=== PATIENT | female | born 1935 | race Caucasian/White ===

== ENCOUNTER 2017-06-12 06:28 | Day surgery (SDC) | payer MEDICARE, BC ==
[~2017-06-12 06:28] MED LIST: Sodium Chloride 0.9% 10 ML Syringe FLUSH PRN
[2017-06-12 08:00] VITALS: BP 173/79
--- NOTE | 2017-06-12 08:10 | OR ---
DATE OF PROCEDURE: 06/12/2017 POSTOPERATIVE CARE: Postoperative care will be provided mainly at the [address] [place] [address] [facility] in conjunction with [facility]. PREOPERATIVE DIAGNOSIS: Cataract, right eye. PREOPERATIVE DIAGNOSIS: Cataract, right eye. PROCEDURE: Cataract extraction, phacoemulsification with intraocular lens placement, right eye. ANESTHESIA: Topical and intracameral. ESTIMATED BLOOD LOSS: Minimal. COMPLICATIONS: None. PATHOLOGY SPECIMENS: None. SURGICAL FINDINGS: None. INDICATION FOR PROCEDURE: The patient is a 81-year-old female with history of a visually significant cataract in the right eye, which interfered with activities of daily living. This consisted of a nuclear sclerosis cataract. Following careful discussion of the risks, benefits and alternatives to cataract extraction with intraocular lens placement including blindness and , the patient elected to proceed, and informed, written consent was obtained prior to the procedure. DESCRIPTION OF THE PROCEDURE: The patient was previously identified, and a linda placed above the right eye. All sources, including the patient, indicated that the right eye was the correct eye. The patient was subsequently taken to the operating room where standard monitors were applied. The patient was then prepped and draped in the usual sterile fashion for ophthalmic surgery. Attention was first directed at the 12 o'clock position where a paracentesis port was fashioned. Shugar solution followed by Viscoat was instilled into the eye. Attention was then directed to the 8:30 position where a triplanar incision was made in a near-clear manner using a keratome. A continuous capsulorrhexis was then made using a combination of the cystotome and Utrata forceps. Hydrodissection was achieved using a balanced salt solution, and the lens rotated nicely. Phacoemulsification was then done using a modified [id number] technique without complication. Phaco time was 16.06 CDE. The remaining cortex was removed using the irrigation/aspiration handpiece. Provisc was then instilled into the eye. A Technis lens, model [id number], at 20.0 diopters was then placed in the capsular bag using an [place] injector. The remaining viscoelastic was removed using the irrigation/aspiration forceps. All wounds were then checked and found to be watertight. The lid speculum and drapes were removed. Maxitrol ointment was placed in the patient's right eye, and the eye was shielded. The patient tolerated the procedure well. The patient was instructed to follow up tomorrow. All needle and sponge counts were correct at the end of the procedure. Valentina Escalante MD /[id number]
== END 2017-06-12 08:02 | disposition home or self-care (01) ==
LOC: JP.SDS 06:28
PROVIDERS: ATTEND Ophthalmology
DX: H25.11 Age-related nuclear cataract, right eye (principal); Z88.8 Allergy status to other drugs, medicaments and biological substances
CPT/HCPCS: C1780

== ENCOUNTER 2017-06-26 06:37 | Day surgery (SDC) | payer MEDICARE, BC ==
[2017-06-26] MEDS ORDERED: Sodium Chloride 0.9% 10 ML Syringe FLUSH PRN (07:00)
[2017-06-26 07:55] VITALS: BP 152/79
--- NOTE | 2017-06-26 09:47 | OR ---
DATE OF PROCEDURE: 06/26/2017 POSTOPERATIVE CARE: Postoperative care will be provided mainly at the [address] [place] [address] [facility] in conjunction with [facility]. PREOPERATIVE DIAGNOSIS: Cataract, left eye. PREOPERATIVE DIAGNOSIS: Cataract, left eye. PROCEDURE: Cataract extraction, phacoemulsification with intraocular lens placement, left eye. ANESTHESIA: Topical and intracameral. ESTIMATED BLOOD LOSS: Minimal. COMPLICATIONS: None. PATHOLOGY SPECIMENS: None. SURGICAL FINDINGS: None. INDICATION FOR PROCEDURE: The patient is a 81-year-old female with history of a visually significant cataract in the left eye, which interfered with activities of daily living. This consisted of a nuclear sclerosis cataract. Following careful discussion of the risks, benefits and alternatives to cataract extraction with intraocular lens placement including blindness and , the patient elected to proceed, and informed, written consent was obtained prior to the procedure. DESCRIPTION OF THE PROCEDURE: The patient was previously identified, and a linda placed above the left eye. All sources, including the patient, indicated that the left eye was the correct eye. The patient was subsequently taken to the operating room where standard monitors were applied. The patient was then prepped and draped in the usual sterile fashion for ophthalmic surgery. Attention was first directed at the 12 o'clock position where a paracentesis port was fashioned. Shugar solution followed by Viscoat was instilled into the eye. Attention was then directed to the 8:30 position where a triplanar incision was made in a near-clear manner using a keratome. A continuous capsulorrhexis was then made using a combination of the cystotome and Utrata forceps. Hydrodissection was achieved using a balanced salt solution, and the lens rotated nicely. Phacoemulsification was then done using a modified [id number] technique without complication. Phaco time was 10.53 CDE. The remaining cortex was removed using the irrigation/aspiration handpiece. Provisc was then instilled into the eye. A Technis lens, model [id number], at 20.0 diopters was then placed in the capsular bag using an [place] injector. The remaining viscoelastic was removed using the irrigation/aspiration forceps. All wounds were then checked and found to be watertight. The lid speculum and drapes were removed. Maxitrol ointment was placed in the patient's left eye, and the eye was shielded. The patient tolerated the procedure well. The patient was instructed to follow up tomorrow. All needle and sponge counts were correct at the end of the procedure. Valentina Escalante MD /[id number]
== END 2017-06-26 07:58 | disposition home or self-care (01) ==
LOC: JP.SDS 06:37
PROVIDERS: ATTEND Ophthalmology
DX: H25.12 Age-related nuclear cataract, left eye (principal); K21.9 Gastro-esophageal reflux disease without esophagitis; N20.0 Calculus of kidney; Z88.2 Allergy status to sulfonamides; Z88.5 Allergy status to narcotic agent; Z91.018 Allergy to other foods; Z91.048 Other nonmedicinal substance allergy status; Z91.041 Radiographic dye allergy status
CPT/HCPCS: V2632

== ENCOUNTER 2017-06-27 16:37 | Emergency (ER) | payer MEDICARE, BC ==
[2017-06-27] MEDS ORDERED: Sodium Chloride 0.9% 10 ML Syringe FLUSH PRN (17:08)
[2017-06-27] MEDS ORDERED: Ondansetron 4 MG/2 ML SDV IVPUSH ONE ×2 (17:09→17:49)
[2017-06-27] MEDS ORDERED: Famotidine 20 MG Tab PO ONE (17:09)
[2017-06-27] MEDS ORDERED: Furosemide 40 MG/4 ML VIAL IVPUSH ONE (17:18)
--- NOTE | 2017-06-27 17:38 | EDM.PDOC ---
<Michael Dior G - Last Filed: 06/27/17 19:51> ED HPI GENERAL MEDICAL PROBLEM - General Chief Complaint: Cardiovascular Problem Stated Complaint: SOB Time Seen by Provider: 06/27/17 17:33 - Related Data Allergies Allergy/AdvReac Type Severity Reaction Status Date / Time codeine Allergy Severe Difficulty Verified 06/27/17 16:47 Breathing adhesive Allergy Rash Verified 06/27/17 16:47 lorazepam [From Ativan] Allergy Cannot Verified 06/27/17 16:47 Remember morphine Allergy Rash Verified 06/27/17 16:47 raspberry Allergy Rash Verified 06/27/17 16:47 Sulfa (Sulfonamide Allergy Itching Verified 06/27/17 16:47 Antibiotics) meperidine HCl [From Demerol] AdvReac Headache Verified 06/27/17 16:47 xray dye Allergy Severe Anaphylactic Uncoded 06/26/17 06:53 Shock celebrex Allergy Pain Uncoded 06/26/17 06:53 grapefruit Allergy Cannot Uncoded 06/26/17 06:53 Remember rhubarb Allergy Rash Uncoded 06/26/17 06:53 Home Meds: Home Meds Calcium Carb & Citrate/Vit D3 [Citracal + D ER] 1 each PO DAILY 06/10/17 [ History] Diphenoxylate HCl/Atropine [Diphenoxylate-Atrop 2.5-0.025] 1 tab PO QID PRN [History] Gabapentin [Neurontin] 300 mg PO BID 06/10/17 [History] Melatonin 5 - 10 mg PO BEDTIME PRN 06/10/17 [History] Metoprolol Succinate [Toprol Xl] 100 mg PO BID 06/10/17 [History] Ranitidine HCl [Ranitidine] 150 mg PO DAILY 06/10/17 [History] Warfarin Sodium 3 - 4 mg PO ASDIRECTED 06/10/17 [History] traMADol HCl [Tramadol HCl] 25 mg PO Q4HR PRN 06/10/17 [History] Magnesium Oxide 1 cap PO DAILY 06/23/17 [History] Molasses 1 tbs PO DAILY 06/23/17 [History] Moxifloxacin [Vigamox 0.5% Ophth Soln] 1 drop EYELF QID 06/23/17 [History] prednisoLONE Acetate [Pred Forte 1% Ophth Susp] 1 drop EYELF QID 06/23/17 [ History] Furosemide 40 mg PO ASDIRECTED #14 tablet 06/27/17 [Rx] Lisinopril 10 mg PO BEDTIME #14 tablet 06/27/17 [Rx] Course - Vital Signs Text/Narrative:: feeling better, able to breath in a supine position more comfortably now. Last Recorded V/S: Last Vital Signs Temp 36 C 06/27/17 16:44 Pulse 77 06/27/17 19:06 Resp 22 H 06/27/17 19:06 BP 143/69 H 06/27/17 19:58 Pulse Ox 95 06/27/17 19:06 - Orders/Labs/Meds Labs: Laboratory Tests 06/27/17 06/27/17 06/27/17 Range/Units 16:48 17:02 17:02 WBC 6.9 (4.5-11.0) K/uL RBC 4.99 (3.30-5.50) M/uL Hgb 13.7 (12.0-15.0) g/dL Hct 41.9 (36.0-48.0) % MCV 84 (80-98) fL MCH 28 (27-31) pg MCHC 33 (32-36) % Plt Count 106 L (150-400) K/uL Neut % (Auto) 74 H (36-66) % Lymph % (Auto) 16 L (24-44) % [place] % (Auto) 8 H (2-6) % Eos % (Auto) 2 (2-4) % Baso % (Auto) 0 (0-1) % PT 22.7 H (9.5-12.0) sec INR 2.06 H (0.80-1.20) Sodium (140-148) mmol/L Potassium (3.6-5.2) mmol/L Chloride (100-108) mmol/L Carbon Dioxide (21-32) mmol/L Anion Gap (5.0-14.0) mmol/L BUN (7-18) mg/dL Creatinine (0.6-1.0) mg/dL Est Cr Clr Drug Dosing mL/min Estimated GFR (MDRD) (>60) Glucose (74-106) mg/dL Calcium (8.5-10.1) mg/dL Total Bilirubin (0.2-1.0) mg/dL AST (15-37) U/L ALT (12-78) U/L Alkaline Phosphatase (46-116) U/L Troponin I < 0.017 (0.000-0.056) ng/mL NT-Pro-B Natriuret Pep (5-450) pg/mL Total Protein (6.4-8.2) g/dL Albumin (3.4-5.0) g/dL Globulin (2.3-3.5) g/dL Albumin/Globulin Ratio (1.2-2.2) Urine Color Urine Appearance Urine pH (4.5-8.0) Ur Specific Reading (1.008-1.030) Urine Protein (NEGATIVE) mg/dL Urine Glucose (UA) (NEGATIVE) mg/dL Urine Ketones (NEGATIVE) mg/dL Urine Occult Blood (NEGATIVE) Urine Nitrite (NEGATIVE) Urine Bilirubin (NEGATIVE) Urine Urobilinogen (NORMAL) mg/dL Ur Leukocyte Esterase (NEGATIVE) Urine RBC (0-5) Urine WBC (0-5) Ur Epithelial Cells Amorphous Sediment Urine Bacteria Urine Mucus 06/27/17 06/27/17 06/27/17 Range/Units 17:02 17:18 18:53 WBC (4.5-11.0) K/uL RBC (3.30-5.50) M/uL Hgb (12.0-15.0) g/dL Hct (36.0-48.0) % MCV (80-98) fL MCH (27-31) pg MCHC (32-36) % Plt Count (150-400) K/uL Neut % (Auto) (36-66) % Lymph % (Auto) (24-44) % [place] % (Auto) (2-6) % Eos % (Auto) (2-4) % Baso % (Auto) (0-1) % PT (9.5-12.0) sec INR (0.80-1.20) Sodium 143 (140-148) mmol/L Potassium 4.1 (3.6-5.2) mmol/L Chloride 108 (100-108) mmol/L Carbon Dioxide 26 (21-32) mmol/L Anion Gap 9.4 (5.0-14.0) mmol/L BUN 16 (7-18) mg/dL Creatinine 0.9 (0.6-1.0) mg/dL Est Cr Clr Drug Dosing 40.09 mL/min Estimated GFR (MDRD) > 60 (>60) Glucose 106 (74-106) mg/dL Calcium 8.9 (8.5-10.1) mg/dL Total Bilirubin 0.6 D (0.2-1.0) mg/dL AST 22 (15-37) U/L ALT 28 (12-78) U/L Alkaline Phosphatase 161 H (46-116) U/L Troponin I (0.000-0.056) ng/mL NT-Pro-B Natriuret Pep 1394 H (5-450) pg/mL Total Protein 6.4 (6.4-8.2) g/dL Albumin 3.4 (3.4-5.0) g/dL Globulin 3.0 (2.3-3.5) g/dL Albumin/Globulin Ratio 1.1 L (1.2-2.2) Urine Color Yellow Urine Appearance Clear Urine pH 8.0 (4.5-8.0) Ur Specific Reading 1.015 (1.008-1.030) Urine Protein Negative (NEGATIVE) mg/dL Urine Glucose (UA) Normal (NEGATIVE) mg/dL Urine Ketones Negative (NEGATIVE) mg/dL Urine Occult Blood Negative (NEGATIVE) Urine Nitrite Negative (NEGATIVE) Urine Bilirubin Negative (NEGATIVE) Urine Urobilinogen Normal (NORMAL) mg/dL Ur Leukocyte Esterase Negative (NEGATIVE) Urine RBC Not seen (0-5) Urine WBC 0-5 (0-5) Ur Epithelial Cells Rare Amorphous Sediment Few Urine Bacteria Many Urine Mucus Not seen 06/27/17 Range/Units 18:57 WBC (4.5-11.0) K/uL RBC (3.30-5.50) M/uL Hgb (12.0-15.0) g/dL Hct (36.0-48.0) % MCV (80-98) fL MCH (27-31) pg MCHC (32-36) % Plt Count (150-400) K/uL Neut % (Auto) (36-66) % Lymph % (Auto) (24-44) % [place] % (Auto) (2-6) % Eos % (Auto) (2-4) % Baso % (Auto) (0-1) % PT (9.5-12.0) sec INR (0.80-1.20) Sodium (140-148) mmol/L Potassium (3.6-5.2) mmol/L Chloride (100-108) mmol/L Carbon Dioxide (21-32) mmol/L Anion Gap (5.0-14.0) mmol/L BUN (7-18) mg/dL Creatinine (0.6-1.0) mg/dL Est Cr Clr Drug Dosing mL/min Estimated GFR (MDRD) (>60) Glucose (74-106) mg/dL Calcium (8.5-10.1) mg/dL Total Bilirubin (0.2-1.0) mg/dL AST (15-37) U/L ALT (12-78) U/L Alkaline Phosphatase (46-116) U/L Troponin I < 0.017 (0.000-0.056) ng/mL NT-Pro-B Natriuret Pep (5-450) pg/mL Total Protein (6.4-8.2) g/dL Albumin (3.4-5.0) g/dL Globulin (2.3-3.5) g/dL Albumin/Globulin Ratio (1.2-2.2) Urine Color Urine Appearance Urine pH (4.5-8.0) Ur Specific Reading (1.008-1.030) Urine Protein (NEGATIVE) mg/dL Urine Glucose (UA) (NEGATIVE) mg/dL Urine Ketones (NEGATIVE) mg/dL Urine Occult Blood (NEGATIVE) Urine Nitrite (NEGATIVE) Urine Bilirubin (NEGATIVE) Urine Urobilinogen (NORMAL) mg/dL Ur Leukocyte Esterase (NEGATIVE) Urine RBC (0-5) Urine WBC (0-5) Ur Epithelial Cells Amorphous Sediment Urine Bacteria Urine Mucus Meds: Medications Discontinued Medications Generic Name Dose Route Start Last Admin Trade Name Freq PRN Reason Stop Dose Admin Famotidine 20 mg 06/27/17 17:09 06/27/17 17:14 Pepcid PO 06/27/17 17:10 20 mg ONETIME ONE Administration Furosemide 60 mg 06/27/17 17:18 06/27/17 17:38 Lasix IVPUSH 06/27/17 17:19 60 mg ONETIME ONE Administration Lisinopril 10 mg 06/27/17 19:43 06/27/17 19:58 Prinivil PO 06/27/17 19:44 10 mg ONETIME ONE Administration Lorazepam 0.25 mg 06/27/17 17:49 06/27/17 17:57 Ativan IVPUSH 06/27/17 17:50 0.25 mg ONETIME ONE Administration Nitroglycerin 1 gm 06/27/17 18:31 06/27/17 18:48 Nitro-Bid 2% TOP 06/27/17 18:32 1 gm ONETIME ONE Administration Ondansetron HCl 4 mg 06/27/17 17:09 06/27/17 17:15 Zofran IVPUSH 06/27/17 17:10 4 mg ONETIME ONE Administration Ondansetron HCl 4 mg 06/27/17 17:49 06/27/17 17:55 Zofran IVPUSH 06/27/17 17:50 4 mg ONETIME ONE Administration Sodium Chloride 10 ml 06/27/17 17:08 06/27/17 17:16 Saline Flush FLUSH 10 ml ASDIRECTED PRN Administration Keep Vein Open Departure - Departure Time of Disposition: 20:10 Disposition: Home, Self-Care 01 Condition: Fair Clinical Impression: Pulmonary edema Qualifiers: Chronicity: acute Qualified Code(s): J81.0 - Acute pulmonary edema HTN (hypertension) Qualifiers: Hypertension type: unspecified Qualified Code(s): I10 - Essential (primary) hypertension Prescriptions: Furosemide 40 mg PO ASDIRECTED #14 tablet Lisinopril 10 mg PO BEDTIME #14 tablet Instructions: Hypertension, [id number], Pulmonary Edema, [id number] Referrals: Arian Kim Sr, MD [Primary Care Provider] - Forms: ED Department Discharge Additional Instructions: Avoid salt or salty foods. Take lisinopril every evening starting tomorrow. Take furosemide every other morning, if still a little SOB tomorrow morning you may start the furosemide then, otherwise wait and start on Friday morning. See your doctor for recheck early next week, return here over the weekend if you are worse. Continue your usual medications. Leave your Nitropaste on until morning. <Elsa Rosenthal - Last Filed: 07/01/17 07:06> ED HPI GENERAL MEDICAL PROBLEM - General Source of Information: Reports: Patient, Family History Limitations: Reports: No Limitations - History of Present Illness INITIAL COMMENTS - FREE TEXT/NARRATIVE: pt arrived with a acute onset of sob. She had cataract surgery yesterday and she is on some new eye drops. She laid down for a nap and when she woke up she was very sob and was very sweaty. She felt nauseated and she was doing alot of belchin. She di see the hook and eye attacher today and she did put drops in the eye. She is now on predisolne drops and antibiotic drops which is a floxin. Onset: Today, Sudden Duration: Minutes: Location: Reports: Chest Associated Symptoms: Reports: Cough, Shortness of Breath Neck Pain Score (Numeric/FACES): 5 Past Medical History HEENT History: Reports: Cataract, Impaired Vision Cardiovascular History: Reports: Afib, Hypertension Respiratory History: Reports: Sleep Apnea Gastrointestinal History: Reports: Cholelithiasis, Colon Polyp Genitourinary History: Reports: Renal Calculus [employer] History: Reports: Musculoskeletal History: Reports: Arthritis, Gout Other Musculoskeletal History: tore the gluteal muscle, has pain in right hip. Endocrine/Metabolic History: Reports: Hypoparathyroidism, Obesity/BMI 30+ Oncologic (Cancer) History: Reports: Lung Other Oncologic History: skin - Infectious Disease History Infectious Disease History: Reports: Chicken Pox, Measles, Mumps - Past Surgical History HEENT Surgical History: Reports: Cataract Surgery, LASIK Respiratory Surgical History: Reports: Lung Resection GI Surgical History: Reports: Appendectomy, Cholecystectomy, Other (See Below) Other GI Surgeries/Procedures: polyps removed from colon Female Surgical History: Reports: Hysterectomy Oncologic Surgical History: Reports: Other (See Below) Other Oncologic Surgeries/Procedures: lung resection Social & Family History - Family History Family Medical History: Noncontributory - Tobacco Use Smoking Status *Q: Never Smoker - Caffeine Use Caffeine Use: Reports: Soda - Recreational Drug Use Recreational Drug Use: No ED ROS GENERAL - Review of Systems Review Of Systems: See Below Constitutional: Reports: No Symptoms HEENT: Reports: No Symptoms Respiratory: Reports: Shortness of Breath, Other ( very acute onset) Cardiovascular: Reports: No Symptoms, Other ( bp was elevated. ) Endocrine: Reports: No Symptoms GI/Abdominal: Reports: No Symptoms : Reports: No Symptoms Musculoskeletal: Reports: No Symptoms Skin: Reports: No Symptoms ED EXAM, GENERAL - Physical Exam Exam: See Below Free Text/Narrative:: pt arrived with a acute episode of sob. She did not have chest pain. She did feel belchy and nauseated. Asa was not given because of that and she is anticoagulated. Exam Limited By: No Limitations General Appearance: Alert, Moderate Distress, Other ( bp was very high. ) Ears: Normal TMs Nose: Normal Inspection Throat/Mouth: Normal Inspection Head: Atraumatic Neck: Normal Inspection Respiratory/Chest: Decreased Breath Sounds, Rales Cardiovascular: Irregularly Irregular, Other (history of atrial fib. ) GI/Abdominal: Soft, Non-Tender Rectal (Female) Exam: Deferred Back Exam: Normal Inspection Extremities: Normal Inspection Neurological: Alert, Oriented, Normal Cognition Psychiatric: Anxious Course - Re-Assessments/Exams Free Text/Narrative Re-Assessment/Exam: 06/27/17 18:20 trop is normal, pt was given iv lasix and she diuresed 750 cc. She is breathing much better. She is still nauseated.
[2017-06-27] MEDS ORDERED: LORazepam 2 MG/ML SDV IVPUSH ONE (17:49)
[2017-06-27] MEDS ORDERED: Nitroglycerin 2% Oint 1 GM UD Packet TOP ONE (18:31)
[2017-06-27] MEDS ORDERED: Lisinopril 10 MG Tab PO ONE (19:43)
[2017-06-27 19:59] VITALS: BP 143/69
--- NOTE | 2017-06-30 08:53 | CR ---
Portable chest Findings: There is mild cardiac enlargement. There is mild vascular engorgement. There is mild promin ence of the interstitial markings. No focal infiltrates or effusions. There are surgical clips medial ly on the left. Impression: 1. Mild CHF.
== END 2017-06-27 20:21 | disposition home or self-care (01) ==
LOC: JP.ED 16:37
DX: J81.0 Acute pulmonary edema (principal); I10 Essential (primary) hypertension; I48.91 Unspecified atrial fibrillation; M19.90 Unspecified osteoarthritis, unspecified site; E20.9 Hypoparathyroidism, unspecified; E66.9 Obesity, unspecified; Z79.899 Other long term (current) drug therapy; Z88.2 Allergy status to sulfonamides; Z88.1 Allergy status to other antibiotic agents; Z88.8 Allergy status to other drugs, medicaments and biological substances; Z91.041 Radiographic dye allergy status; Z91.018 Allergy to other foods; Z88.5 Allergy status to narcotic agent; Z91.09 Other allergy status, other than to drugs and biological substances
CPT/HCPCS: 36415; 71045; 80053; 81001; 83880; 84484; 85025; 85610; 93005; 96374; 96375; 96376; 99284; 99285; A9270; J1940; J2060; J2405; J7050

== ENCOUNTER 2017-10-28 23:31 | Emergency (ER) | payer MEDICARE, BC ==
--- NOTE | 2017-10-29 | EDM.PDOC ---
ED HPI GENERAL MEDICAL PROBLEM - General Stated Complaint: SORE LEGS/CAN'T WALK Time Seen by Provider: 10/28/17 23:43 Source of Information: Reports: Patient, RN Notes Reviewed History Limitations: Reports: No Limitations - History of Present Illness INITIAL COMMENTS - FREE TEXT/NARRATIVE: 82-year-old female presents to the emergency department today complaint of bilateral leg pain, she states the leg pain has been ongoing for the last couple days but now it's gotten to the point where she can no longer take the pain anymore. She is not tried any medications other than tramadol which is her normal medication. She has complained of heartburn been ongoing for the last 3 weeks no shortness of breath no diaphoresis bilateral lower legs Pain Score (Numeric/FACES): 10 - Related Data Allergies Allergy/AdvReac Type Severity Reaction Status Date / Time codeine Allergy Severe Difficulty Verified 10/28/17 23:47 Breathing adhesive Allergy Rash Verified 10/28/17 23:47 lorazepam [From Ativan] Allergy Cannot Verified 10/28/17 23:47 Remember morphine Allergy Rash Verified 10/28/17 23:47 raspberry Allergy Rash Verified 10/28/17 23:47 Sulfa (Sulfonamide Allergy Itching Verified 10/28/17 23:47 Antibiotics) meperidine HCl [From Demerol] AdvReac Headache Verified 10/28/17 23:47 xray dye Allergy Severe Anaphylactic Uncoded 10/28/17 23:47 Shock celebrex Allergy Pain Uncoded 10/28/17 23:47 grapefruit Allergy Cannot Uncoded 10/28/17 23:47 Remember rhubarb Allergy Rash Uncoded 10/28/17 23:47 Home Meds: Home Meds Calcium Carb & Citrate/Vit D3 [Citracal + D ER] 1 each PO DAILY 06/10/17 [ History] Diphenoxylate HCl/Atropine [Diphenoxylate-Atrop 2.5-0.025] 1 tab PO QID PRN [History] Melatonin 5 - 10 mg PO BEDTIME PRN 06/10/17 [History] Metoprolol Succinate [Toprol Xl] 100 mg PO BID 06/10/17 [History] Ranitidine HCl [Ranitidine] 150 mg PO DAILY 06/10/17 [History] Warfarin Sodium 3 - 4 mg PO ASDIRECTED 06/10/17 [History] traMADol HCl [Tramadol HCl] 25 mg PO Q4HR PRN 06/10/17 [History] Magnesium Oxide 200 cap PO ASDIRECTED 06/23/17 [History] Molasses 1 tbs PO DAILY 06/23/17 [History] prednisoLONE acetate [Pred Forte 1% Ophth Susp] 1 drop EYELF QID 06/23/17 [ History] Lisinopril 10 mg PO BEDTIME #14 tablet 06/27/17 [Rx] Diazepam [Valium] 5 mg PO BID 10/20/17 [History] Past Medical History HEENT History: Reports: Cataract, Impaired Vision Cardiovascular History: Reports: Afib, Hypertension Respiratory History: Reports: Sleep Apnea Gastrointestinal History: Reports: Cholelithiasis, Colon Polyp Genitourinary History: Reports: Renal Calculus [employer] History: Reports: Musculoskeletal History: Reports: Arthritis, Gout Other Musculoskeletal History: tore the gluteal muscle, has pain in right hip. Endocrine/Metabolic History: Reports: Hypoparathyroidism, Obesity/BMI 30+ Oncologic (Cancer) History: Reports: Lung Other Oncologic History: skin - Infectious Disease History Infectious Disease History: Reports: Chicken Pox, Measles, Mumps - Past Surgical History Head Surgeries/Procedures: Reports: None HEENT Surgical History: Reports: Cataract Surgery, LASIK Respiratory Surgical History: Reports: Lung Resection GI Surgical History: Reports: Appendectomy, Cholecystectomy, Other (See Below) Other GI Surgeries/Procedures: polyps removed from colon Female Surgical History: Reports: Hysterectomy Oncologic Surgical History: Reports: Other (See Below) Other Oncologic Surgeries/Procedures: lung resection Dermatological Surgical History: Reports: None Social & Family History - Family History Family Medical History: Noncontributory - Tobacco Use Smoking Status *Q: Never Smoker - Caffeine Use Caffeine Use: Reports: Soda ED ROS GENERAL - Review of Systems Review Of Systems: See Below Constitutional: Denies: Fever, Chills HEENT: Reports: No Symptoms Respiratory: Reports: No Symptoms Cardiovascular: Reports: Chest Pain (describes as heartburn) GI/Abdominal: Reports: No Symptoms : Reports: No Symptoms Musculoskeletal: Reports: Leg Pain Skin: Reports: No Symptoms Neurological: Reports: No Symptoms (bilateral) Psychiatric: Reports: Agitation, Anxiety ED EXAM, GENERAL - Physical Exam Exam: See Below Free Text/Narrative:: General: 82-year-old female, in moderate discomfort secondary to pain, alert and oriented x3 HEENT: head is atraumatic normocephalic, eyes pupils equal round reactive to light, sclera clear no conjunctivitis appreciated. Ears tympanic membranes blocked by cerumen bilaterally. Nose no septal deviation, nares are clear, no blood present. Mouth mucosa is moist and pink no erythema or exudate noted in soft palate, tongue is midline uvula is midline, dentition is intact. Neck: Supple no thyromegaly no tracheal deviation. Nodes: Cervical nodes subclavicular nodes nontender no palpable lymphadenopathy noted. Lungs: clear to auscultation bilaterally with symmetrical respirations, no adventitious noise appreciated. CV: Regular rate and rhythm S1 and S2 appreciated no murmurs rubs or gallops noted. Abdomen: Soft, nontender, no palpable masses or organomegaly appreciated, no distention no guarding bowel sounds are present, . Neuro: Cranial nerves II through XII grossly intact Skin: Warm and dry, intact Extremities: No lower extremity edema appreciated, no rashes no specific point tenderness appreciated, bilaterally pedal pulse is +2. Bilaterally Course - Vital Signs Last Recorded V/S: Last Vital Signs Temp 98.2 F 10/29/17 00:14 Pulse 81 10/29/17 02:03 Resp 22 H 10/29/17 02:03 BP 144/73 H 10/29/17 02:03 Pulse Ox 97 10/29/17 02:03 - Orders/Labs/Meds Orders: Active Orders 24 hr Category Date Time Status Cardiac Monitoring [RC] .As Directed Care 10/28/17 23:55 Active EKG Documentation Completion [RC] ASDIRECTED Care 10/28/17 23:56 Active VL Duplex Lwr Ext Art Comp Bi [US] Stat Exams 10/29/17 00:55 Taken EKG 12 Lead [EK] Stat Ther 10/28/17 23:56 Ordered Labs: Laboratory Tests 10/28/17 10/28/17 10/28/17 Range/Units 00:05 00:05 00:05 WBC 9.0 (4.5-11.0) K/uL RBC 4.61 (3.30-5.50) M/uL Hgb 13.4 (12.0-15.0) g/dL Hct 41.2 (36.0-48.0) % MCV 89 (80-98) fL MCH 29 (27-31) pg MCHC 33 (32-36) % Plt Count 109 L (150-400) K/uL Neut % (Auto) 69 H (36-66) % Lymph % (Auto) 18 L (24-44) % Mills % (Auto) 10 H (2-6) % Eos % (Auto) 3 (2-4) % Baso % (Auto) 0 (0-1) % PT 17.6 H (9.5-12.0) sec INR 1.65 H (0.80-1.20) D-Dimer, Quantitative 705 H (0.0-400.0) ng/mL Sodium (140-148) mmol/L Potassium (3.6-5.2) mmol/L Chloride (100-108) mmol/L Carbon Dioxide (21-32) mmol/L Anion Gap (5.0-14.0) mmol/L BUN (7-18) mg/dL Creatinine (0.6-1.0) mg/dL Est Cr Clr Drug Dosing mL/min Estimated GFR (MDRD) (>60) Glucose (74-106) mg/dL Calcium (8.5-10.1) mg/dL Total Bilirubin (0.2-1.0) mg/dL AST (15-37) U/L ALT (12-78) U/L Alkaline Phosphatase (46-116) U/L Troponin I (0.000-0.056) ng/mL Total Protein (6.4-8.2) g/dL Albumin (3.4-5.0) g/dL Globulin (2.3-3.5) g/dL Albumin/Globulin Ratio (1.2-2.2) 10/28/17 Range/Units 00:05 WBC (4.5-11.0) K/uL RBC (3.30-5.50) M/uL Hgb (12.0-15.0) g/dL Hct (36.0-48.0) % MCV (80-98) fL MCH (27-31) pg MCHC (32-36) % Plt Count (150-400) K/uL Neut % (Auto) (36-66) % Lymph % (Auto) (24-44) % Mills % (Auto) (2-6) % Eos % (Auto) (2-4) % Baso % (Auto) (0-1) % PT (9.5-12.0) sec INR (0.80-1.20) D-Dimer, Quantitative (0.0-400.0) ng/mL Sodium 144 (140-148) mmol/L Potassium 4.3 (3.6-5.2) mmol/L Chloride 110 H (100-108) mmol/L Carbon Dioxide 27 (21-32) mmol/L Anion Gap 11.3 (5.0-14.0) mmol/L BUN 27 H (7-18) mg/dL Creatinine 1.0 (0.6-1.0) mg/dL Est Cr Clr Drug Dosing 35.49 mL/min Estimated GFR (MDRD) 53 L (>60) Glucose 118 H (74-106) mg/dL Calcium 8.6 (8.5-10.1) mg/dL Total Bilirubin 0.3 (0.2-1.0) mg/dL AST 17 (15-37) U/L ALT 31 (12-78) U/L Alkaline Phosphatase 159 H (46-116) U/L Troponin I < 0.017 (0.000-0.056) ng/mL Total Protein 5.9 L (6.4-8.2) g/dL Albumin 3.0 L (3.4-5.0) g/dL Globulin 2.9 (2.3-3.5) g/dL Albumin/Globulin Ratio 1.0 L (1.2-2.2) Meds: Medications Discontinued Medications Generic Name Dose Route Start Last Admin Trade Name Rickq PRN Reason Stop Dose Admin Fentanyl 50 mcg 10/28/17 23:56 10/29/17 00:00 Sublimaze IM 10/28/17 23:57 50 mcg ONETIME ONE Administration Fentanyl 50 mcg 10/29/17 00:55 10/29/17 01:08 Sublimaze IM 10/29/17 00:56 50 mcg ONETIME ONE Administration Ropinirole HCl 0.25 mg 10/29/17 21:00 Requip PO BEDTIME DK Departure - Departure Time of Disposition: 02:30 Disposition: Home, Self-Care 01 Condition: Fair Clinical Impression: Peripheral vascular disease - Discharge Information Referrals: Arian Kim Sr, MD [Primary Care Provider] - Additional Instructions: Use hydrocodone as needed for pain control, Please followup with your primary care provider in 3-5 days if not better, please call return to the emergency department with worsening of symptoms. - My Orders Last 24 Hours: My Active Orders 10/28/17 23:55 Cardiac Monitoring [RC] .As Directed 10/28/17 23:56 EKG Documentation Completion [RC] ASDIRECTED EKG 12 Lead [EK] Stat 10/29/17 00:55 VL Duplex Lwr Ext Art Comp Bi [US] Stat - Assessment/Plan Last 24 Hours: My Active Orders 10/28/17 23:55 Cardiac Monitoring [RC] .As Directed 10/28/17 23:56 EKG Documentation Completion [RC] ASDIRECTED EKG 12 Lead [EK] Stat 10/29/17 00:55 VL Duplex Lwr Ext Art Comp Bi [US] Stat Plan: Assessment Acuity = acute Site and laterality = peripheral vascular disease left greater than right Etiology = underlying plaque probably related to cholesterol as well as remote smoking history Manifestations = bilateral leg pain Location of injury = Home Lab values = CBC unremarkable CMP unremarkable INR subtherapeutic at 1.65 d- dimer elevated at 705 uncertain significance troponin was negative EKG demonstrates a sinus rhythm with ST elevation in 3 however this is similar to EKG on 09-07 ultrasound demonstrates a biphasic waveform on the right however monophasic waveform on the left with plaques and stenosis throughout Plan Did review lab work and ultrasound results with her she is provided hydrocodone 5/325 one tab by mouth 3 times a day when necessary total #6 of her follow-up with her primary care in the next 3-5 days for reevaluation This note was dictated using [employer] voice recognition software please call with any questions on syntax or grammar.
[2017-10-29] MEDS: fentaNYL 100 MCG/2 ML SDV IM ONE ×2 (01:08)
[2017-10-29 02:04] VITALS: BP 144/73
--- NOTE | 2017-10-29 08:26 | US ---
VL Duplex Lwr Ext Art Comp Bi HISTORY: pain elevated d-dimer FINDINGS: The right leg demonstrates biphasic arterial flow throughout with monophasic flow in the do rsalis pedis artery at the foot. No occluded segments are seen. No significant increased peak systoli c velocities are identified. No focal stenosis is seen. Left leg demonstrates biphasic flow from the common femoral artery through the mid SFA. Monophasic fl ow is seen in the distal SFA thrombus remainder of the left leg. No occluded segments are identified. No focal increased velocities are seen. There is scattered atherosclerotic plaque bilaterally. IMPRESSION: Scattered atherosclerotic plaque bilaterally. No occluded segments are seen. No focal hem odynamically significant stenosis is identified. Biphasic and monophasic flow bilaterally could sugge st moderate inflow occlusive changes. Monophasic flow is seen in the distal SFA through the dorsalis pedis artery left leg.
[2017-10-29] MEDS ORDERED: rOPINIRole 0.5 MG Tab PO SCH (21:00)
== END 2017-10-29 02:47 | disposition home or self-care (01) ==
LOC: JP.ED 23:31
DX: I73.9 Peripheral vascular disease, unspecified (principal); Z91.018 Allergy to other foods; Z88.8 Allergy status to other drugs, medicaments and biological substances; Z79.899 Other long term (current) drug therapy; I10 Essential (primary) hypertension; E66.9 Obesity, unspecified; Z91.041 Radiographic dye allergy status; Z88.5 Allergy status to narcotic agent; Z88.2 Allergy status to sulfonamides; Z91.09 Other allergy status, other than to drugs and biological substances
CPT/HCPCS: 36415; 80053; 84484; 85025; 85379; 85610; 93005; 93925; 96372; 99284; J3010

== ENCOUNTER 2018-07-10 14:12 | Emergency (ER) | payer MEDICARE, BC ==
[2018-07-10 14:28] VITALS: BP 136/70
[2018-07-10] MEDS ORDERED: Dexamethasone 4 MG/ML SDV IM ONE (15:29)
[2018-07-10] MEDS ORDERED: Ketorolac 60 MG/2 ML SDV IM ONE (15:29)
--- NOTE | 2018-07-10 15:37 | EDM.PDOC ---
ED HPI GENERAL MEDICAL PROBLEM - General Chief Complaint: Lower Extremity Injury/Pain Stated Complaint: RT HIP PAIN Time Seen by Provider: 07/10/18 15:15 Source of Information: Reports: Patient, Family History Limitations: Reports: No Limitations, Other (pain limiting history at time of evaluation ) - History of Present Illness INITIAL COMMENTS - FREE TEXT/NARRATIVE: alert pleasant 82-year-old female presents with acute exacerbation of right hip , sciatic nerve pain. Patient had similar symptoms in December which she got a steroid shots and symptoms had improved over the last 6 months without recurrence. Patient was seen in the clinic yesterday received a shot of Toradol with resolution of her symptoms. Patient states her symptoms were worse this am and has progressively worsened through out the day. Patient is taking hydrocodone 10/325 for the continuation of her pain. Patient states she has not been able to sleep or rest for 2-3 days due to pain. Patient state Tramadol does a better job controlling her pain than Lorcet Patient state the narcotic pain medications is not controling her pain and she has increased abdominal cramping and pain. She has not had a bowel movement in the last 2 days with normally loose regular stools since taking pain medications. She denies any new fall or injury. Pain radiates from right lower back to buttocks and right lateral thigh to outer foot. Patient denies any loss of bowel or bladder function or concerns. Right Hip Pain Score (Numeric/FACES): 10 - Related Data Allergies Allergy/AdvReac Type Severity Reaction Status Date / Time codeine Allergy Severe Difficulty Verified 07/10/18 14:40 Breathing adhesive Allergy Rash Verified 07/10/18 14:40 lorazepam [From Ativan] Allergy Cannot Verified 07/10/18 14:40 Remember morphine Allergy Rash Verified 07/10/18 14:40 raspberry Allergy Rash Verified 07/10/18 14:40 Sulfa (Sulfonamide Allergy Itching Verified 07/10/18 14:40 Antibiotics) meperidine HCl [From Demerol] AdvReac Headache Verified 07/10/18 14:40 xray dye Allergy Severe Anaphylactic Uncoded 07/10/18 14:40 Shock celebrex Allergy Pain Uncoded 07/10/18 14:40 grapefruit Allergy Cannot Uncoded 07/10/18 14:40 Remember rhubarb Allergy Rash Uncoded 07/10/18 14:40 Home Meds: Home Meds Calcium Carb & Citrate/Vit D3 [Citracal + D ER] 1 each PO DAILY 06/10/17 [ History] Diphenoxylate HCl/Atropine [Diphenoxylate-Atrop 2.5-0.025] 1 tab PO QID PRN [History] Melatonin 5 - 10 mg PO BEDTIME PRN 06/10/17 [History] Metoprolol Succinate [Toprol Xl] 100 mg PO BID 06/10/17 [History] Ranitidine HCl [Ranitidine] 150 mg PO DAILY 06/10/17 [History] Warfarin Sodium 3 mg PO ASDIRECTED 06/10/17 [History] traMADol HCl [Tramadol HCl] 25 mg PO Q4HR PRN 06/10/17 [History] Magnesium Oxide 200 cap PO ASDIRECTED 06/23/17 [History] Molasses 1 tbs PO DAILY 06/23/17 [History] Methimazole [Tapazole] 10 mg PO DAILY 07/10/18 [History] Omeprazole 20 mg PO ONETIME 07/10/18 [History] Past Medical History HEENT History: Reports: Cataract, Impaired Vision Cardiovascular History: Reports: Afib, Hypertension Respiratory History: Reports: Sleep Apnea Other Respiratory History: Cpap Gastrointestinal History: Reports: Cholelithiasis, Colon Polyp Genitourinary History: Reports: Renal Calculus [employer]ER[employer]OM[employer]ER TESTER History: Reports: Musculoskeletal History: Reports: Arthritis, Gout Other Musculoskeletal History: tore the gluteal muscle, has pain in right hip. Neurological History: Reports: Other (See Below) Other Neuro History: restless leg syndrome Endocrine/Metabolic History: Reports: Hyperthyroidism, Obesity/BMI 30+ Hematologic History: Reports: Anticoagulation Therapy Oncologic (Cancer) History: Reports: Lung Other Oncologic History: skin - Infectious Disease History Infectious Disease History: Reports: Chicken Pox, Measles, Mumps - Past Surgical History Head Surgeries/Procedures: Reports: None HEENT Surgical History: Reports: Cataract Surgery, LASIK Respiratory Surgical History: Reports: Lung Resection GI Surgical History: Reports: Appendectomy, Cholecystectomy, Other (See Below) Other GI Surgeries/Procedures: polyps removed from colon Female Surgical History: Reports: Hysterectomy Oncologic Surgical History: Reports: Other (See Below) Other Oncologic Surgeries/Procedures: lung resection Dermatological Surgical History: Reports: None Social & Family History - Family History Family Medical History: Noncontributory - Tobacco Use Smoking Status *Q: Former Smoker Used Tobacco, but Quit: Yes Month/Year Tobacco Last Used: 2017 - Caffeine Use Caffeine Use: Reports: Soda - Recreational Drug Use Recreational Drug Use: No Review of Systems - Review of Systems Review Of Systems: ROS reveals no pertinent complaints other than HPI. (limited due to level of pain) ED EXAM, GENERAL - Physical Exam Exam: See Below Exam Limited By: Other (pain concerns. at bedside and supportive) General Appearance: Alert, WD/WN, Moderate Distress (due to right hip/buttocks pain) Ears: Normal External Exam, Hearing Grossly Normal Ear Exam: Bilateral Ear: Auricle Normal, Canal Normal, TM normal Nose: Normal Inspection, Normal Mucosa, No Blood Throat/Mouth: Normal Inspection, Normal Lips, Normal Teeth, Normal Voice, No Airway Compromise Head: Normocephalic Neck: Normal Inspection, Supple, Non-Tender, Full Range of Motion Respiratory/Chest: No Respiratory Distress, Lungs Clear, Normal Breath Sounds, No Accessory Muscle Use, Chest Non-Tender Cardiovascular: Normal Peripheral Pulses, Regular Rate, Rhythm GI/Abdominal: Normal Bowel Sounds, Soft, Non-Tender, No Distention Back Exam: Normal Inspection, Full Range of Motion, Vertebral Tenderness ( between scapula (likely MS and positional due to adjusted position of comfort due to right buttocks pain) ) Extremities: Normal Inspection, No Pedal Edema, Normal Capillary Refill, Other ( significant pain to palpation of Right SI joint which radiates down lateral thigh with irriation, classic finding for sciatica) Neurological: Alert, Oriented, CN II-XII Intact, Normal Cognition, Normal Gait, Normal Reflexes, No Motor/Sensory Deficits Psychiatric: Normal Affect, Normal Mood Skin Exam: Warm, Dry, Intact, Normal Color, No Rash Course - Vital Signs Last Recorded V/S: Last Vital Signs Temp 35.4 C 07/10/18 14:36 Pulse 84 07/10/18 14:36 Resp 17 07/10/18 14:36 BP 136/70 07/10/18 14:36 Pulse Ox 97 07/10/18 14:36 - Orders/Labs/Meds Meds: Medications Discontinued Medications Generic Name Dose Route Start Last Admin Trade Name Freq PRN Reason Stop Dose Admin Dexamethasone 10 mg 07/10/18 15:29 07/10/18 15:38 Dexamethasone IM 07/10/18 15:30 10 mg ONETIME ONE Administration Ketorolac Tromethamine 60 mg 07/10/18 15:29 07/10/18 15:39 Toradol IM 07/10/18 15:30 60 mg ONETIME ONE Administration Tramadol HCl 100 mg 07/10/18 15:47 07/10/18 15:58 Ultram PO 07/10/18 15:48 100 mg ONETIME ONE Administration Tramadol HCl Confirm 07/10/18 16:00 Ultram Administered 07/10/18 16:01 Dose 50 mg .ROUTE .STK-MED ONE - Re-Assessments/Exams Free Text/Narrative Re-Assessment/Exam: Examination completed: Patient instructions reviewed from clinic visit which include prescription for Lorcet and appointment Scheduled for July 14 for XR Fluoro Steroid shot. Scheduled medications are reviewed, Discussed treatment for constipation including Mag Oxide and Miralax ( states they have a bottle of Miralax at home). 07/10/18 16:35: Repeat examination completed. Pain improving from 10 out of 10 to 5-6 out of 10. Patient is much more comfortable and able to ambulate with less difficulty. Departure - Departure Time of Disposition: 16:34 Disposition: Home, Self-Care 01 Condition: Good Clinical Impression: Right sided sciatica - Discharge Information Instructions: Sciatica Rehab-[facility], Sciatica Referrals: Mane Javier MD [Primary Care Provider] - Forms: ED Department Discharge Additional Instructions: BACK SCIATICA 1. LIMIT LIFTING (<10 LBS/BENDING/TWISTING) X 48 HOURS. 2. TAKE ABOVE MEDICATIONS DIRECTED UNLESS RE-CHECK IN CLINIC 3. PREDNISONE 20 mg every am and 20mg every pm with food FOR INFLAMMATION. 4. Tramadol 50-100mg every 4-6 hours for moderate pain. May take with TYLENOL 500-1000mg every 6-8 hours for mild pain. Stop Lorcet at this time. 5. Follow Constipation information. Increase Magnesium to 2-3 tablets daily and take Miralax 1-2 times per day if taking pain medication to prevent and treat constipation. 6. ICE 15-20MIN ALTERNATE WITH HEAT 15-20 MIN 3-4 TIMES PER DAY. 7. CALL CLINIC IN 3-4 DAYS TO MAKE A FOLLOW-UP APPOINTMENT SOONER if not improved OR WORSEN. 8. RETURN TO ER FOR WORSENING OR NEW SYMPTOMS, LOSS OF BLADDER/BOWL CONTROL, GROIN NUMBNESS, FEVER, TROUBLE BREATHING, and NUMBNESS/TINGLINIG/WEAKNESS IN LOWER EXTREMiTIES, ABDOMINAL PAIN, CONCERNS OR CHANGES. Sciatica What is sciatica? Sciatica is a form of low back pain that runs down your leg, causing pain, numbness, or tingling in the leg. How does it occur? The sciatic nerve is formed by a group of nerves that run from the lower spine down the leg to the foot. Anything that causes irritation along the course of the nerve can cause sciatica. The most common causes are: overuse of your back (lifting something that is too heavy or doing work that uses your back much more than you are used to) injury to your back (slipping and falling, or having something hit your back). Overuse or injury can cause muscle tension or spasm, back sprains, ligament or muscle tears, or joint problems, all of which can irritate the sciatic nerve. Low back pain and sciatica can also be caused by infections, tumors, a ruptured disk in your back, osteoporosis, spondylosis (hardening and stiffening of the spine), or spinal stenosis (narrowing of the spinal canal from bone or soft tissue). What are the symptoms? The main symptom is pain that shoots down from the lower back and buttocks to your leg. You may also have numbness or tingling in your leg. Sometimes your leg muscles are weak. How is it diagnosed? Your healthcare provider will ask about your symptoms and examine your back. If your provider thinks you might have an infection or a bone disease, you may have some lab tests or X-rays, a CT scan, or an MRI. Most people do not need X-rays or other types of scans in the early part of their treatment. If the pain does not get better in a few weeks, or if the symptoms get worse, then special tests may be needed How is it treated? Most people with low back pain and sciatica get better no matter what they do. Often nonprescription medicines for pain and inflammation, such as aspirin, ibuprofen, or naproxen, can ease the pain. Talk to your healthcare provider about whether you should take these medicines. Your provider may prescribe stronger pain medicine or other types of medicines. Your provider may prescribe oral steroids or you may be given a steroid shot into your spine to control pain and inflammation. Ice packs or a heating pad may help reduce pain. (Do not sleep on a heating pad because it could cause ybarra.) Your provider may also suggest physical therapy. A program of gentle exercise may speed your recovery. If you continue to have symptoms, you may need to have surgery. However, most people who have herniated disks do not need an operation. How long will the effects last? People who have sciatica with back pain recover more slowly than people with other kinds of back pain. However, you will probably begin feeling better within a few days of a back strain or injury if you don't strain your back again and if you take some medicine for pain and inflammation. Often the pain is gone in a week or two. Contact your provider right away if: You have numbness or tingling in the inner part of your thighs (in a saddle distribution). You have any new or increasing weakness in your legs. Call your healthcare provider for a follow-up appointment if: The pain is not getting better. You have new symptoms. How can I take care of myself? If you have low back pain and sciatica, make sure you do not overuse your back. Strict bed rest is no longer recommended. It is better to do your usual activities but: Avoid lifting more than 5 pounds. Avoid frequent bending or other activities that make the pain worse. How can I help prevent sciatica? If you have had back pain and sciatica, you are likely to get it again. To help prevent it in the shelter: Lose weight if you are overweight. Do regular aerobic exercise to keep your back and abdominal muscles in shape ( this can be as simple as walking), Learn to lift properly. Bend your knees and hips and keep your back straight when you lift a heavy object.
[2018-07-10] MEDS ORDERED: traMADol 50 MG Tab PO ONE (15:47)
[2018-07-10] MEDS ORDERED: traMADol 50 MG Tab ONE (16:00)
== END 2018-07-10 16:46 | disposition home or self-care (01) ==
LOC: JP.ED 14:12
DX: M54.31 Sciatica, right side (principal); I10 Essential (primary) hypertension; I48.91 Unspecified atrial fibrillation; E03.9 Hypothyroidism, unspecified; Z79.01 Long term (current) use of anticoagulants; Z87.891 Personal history of nicotine dependence; Z79.899 Other long term (current) drug therapy; Z88.1 Allergy status to other antibiotic agents; Z88.5 Allergy status to narcotic agent; Z88.2 Allergy status to sulfonamides; Z91.041 Radiographic dye allergy status; Z91.09 Other allergy status, other than to drugs and biological substances
CPT/HCPCS: 96372; 99283; A9270; J1100; J1885

== ENCOUNTER 2021-02-15 16:00 | Emergency (ER) | payer MEDICARE, BC ==
[2021-02-15 16:23] VITALS: BP 166/89
[2021-02-15 16:57] LABS: CORONAVIRUS COVID-19 NAA NEGATIVE (NEGATIVE)
[2021-02-15 16:58] VITALS: PULSE 73
[2021-02-15] MEDS ORDERED: Acetaminophen 500 MG Tab PO ONE (17:03)
--- NOTE | 2021-02-15 17:16 | EDM.PDOC ---
ED HPI GENERAL MEDICAL PROBLEM - General Chief Complaint: Respiratory Problem Stated Complaint: NAUSEA, WEAK, POSSIBLE COVID Time Seen by Provider: 02/15/21 16:55 Source of Information: Reports: Patient, Old Records, RN History Limitations: Reports: No Limitations - History of Present Illness INITIAL COMMENTS - FREE TEXT/NARRATIVE: 85 yo female presents with a complaint of sinus pressure and rhinorrhea since yesterday. No fever or cough. No known exposures. Is taking Lili without relief. 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: Other (see below) (Lili) Right Hip Pain Score (Numeric/FACES): 7 - Related Data Allergies Allergy/AdvReac Type Severity Reaction Status Date / Time codeine Allergy Severe Difficulty Verified 07/10/18 14:40 Breathing adhesive Allergy Rash Verified 07/10/18 14:40 lorazepam [From Ativan] Allergy Cannot Verified 07/10/18 14:40 Remember morphine Allergy Rash Verified 07/10/18 14:40 raspberry Allergy Rash Verified 07/10/18 14:40 Sulfa (Sulfonamide Allergy Itching Verified 07/10/18 14:40 Antibiotics) meperidine HCl [From Demerol] AdvReac Headache Verified 07/10/18 14:40 xray dye Allergy Intermediate Rash Uncoded 03/29/19 13:29 celebrex Allergy Pain Uncoded 07/10/18 14:40 grapefruit Allergy Cannot Uncoded 07/10/18 14:40 Remember rhubarb Allergy Rash Uncoded 07/10/18 14:40 Home Meds: Home Meds Calcium Carb, Citrate/Vit D3 [Citracal + D ER] 1 each PO DAILY 06/10/17 [History] Diphenoxylate HCl/Atropine [Diphenoxylate-Atrop 2.5-0.025] 1 tab PO QID PRN 06/10/17 [History] Melatonin 5 - 10 mg PO BEDTIME PRN 06/10/17 [History] Metoprolol Succinate [Toprol Xl] 100 mg PO BID 06/10/17 [History] Warfarin Sodium 3 mg PO ASDIRECTED 06/10/17 [History] traMADol HCl [Tramadol HCl] 25 mg PO Q4HR PRN 06/10/17 [History] Magnesium Oxide 200 cap PO ASDIRECTED 06/23/17 [History] Methimazole [Tapazole] 10 mg PO DAILY 07/10/18 [History] Omeprazole 20 mg PO ONETIME 07/10/18 [History] Past Medical History HEENT History: Reports: Cataract, Impaired Vision Cardiovascular History: Reports: Afib, Hypertension Respiratory History: Reports: Sleep Apnea Other Respiratory History: Cpap Gastrointestinal History: Reports: Cholelithiasis, Colon Polyp Genitourinary History: Reports: Renal Calculus 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 Neurological History: Reports: Other (See Below) Other Neuro History: restless leg syndrome Endocrine/Metabolic History: Reports: Hyperthyroidism, Obesity/BMI 30+ Hematologic History: Reports: Anticoagulation Therapy Oncologic (Cancer) History: Reports: Lung Other Oncologic History: skin - Infectious Disease History Infectious Disease History: Reports: Chicken Pox, Measles, Mumps - Past Surgical History Head Surgeries/Procedures: Reports: None HEENT Surgical History: Reports: Cataract Surgery, LASIK Cardiovascular Surgical History: Reports: None Respiratory Surgical History: Reports: Lung Resection GI Surgical History: Reports: Appendectomy, Cholecystectomy, Other (See Below) Other GI Surgeries/Procedures: polyps removed from colon Female Surgical History: Reports: Hysterectomy Endocrine Surgical History: Reports: None Musculoskeletal Surgical History: Reports: None Oncologic Surgical History: Reports: Other (See Below) Other Oncologic Surgeries/Procedures: lung resection Dermatological Surgical History: Reports: None Social & Family History - Family History Family Medical History: No Pertinent Family History - Tobacco Use Tobacco Use Status *Q: Former Tobacco User Used Tobacco, but Quit: Yes Month/Year Tobacco Last Used: 02/2015 - Caffeine Use Caffeine Use: Reports: Soda - Recreational Drug Use Recreational Drug Use: No ED ROS GENERAL - Review of Systems Review Of Systems: See Below Constitutional: Reports: No Symptoms HEENT: Reports: Rhinitis, Other (frontal sinus pressure) Respiratory: Reports: No Symptoms Cardiovascular: Reports: No Symptoms GI/Abdominal: Reports: No Symptoms Musculoskeletal: Reports: No Symptoms Skin: Reports: No Symptoms Neurological: Reports: No Symptoms ED EXAM, GENERAL - Physical Exam Exam: See Below Exam Limited By: No Limitations General Appearance: Alert, WD/WN, No Apparent Distress, Obese Eye Exam: Bilateral Eye: Normal Inspection Ears: Other (bilat cerumen impactions) Ear Exam: Bilateral Ear: Auricle Normal Nose: Clear Rhinorrhea Throat/Mouth: Normal Inspection, Normal Lips, Normal Oropharynx, Normal Voice, No Airway Compromise Head: Atraumatic, Normocephalic Neck: Normal Inspection Respiratory/Chest: No Respiratory Distress, Lungs Clear, Normal Breath Sounds, No Accessory Muscle Use Cardiovascular: Regular Rate, Rhythm, No Edema Back Exam: Normal Inspection Extremities: Normal Inspection Neurological: Alert, Oriented, CN II-XII Intact, Normal Cognition, No Motor/Sensory Deficits Psychiatric: Normal Affect, Normal Mood Skin Exam: Warm, Dry, Intact, Normal Color, No Rash Course - Vital Signs Last Recorded V/S: Last Vital Signs Temp 36.6 C 02/15/21 16:22 Pulse 73 02/15/21 16:57 Resp 20 02/15/21 16:22 BP 166/89 H 02/15/21 16:57 Pulse Ox 94 L 02/15/21 16:57 - Orders/Labs/Meds Orders: Active Orders 24 hr Category Date Time Status Isolation [COMM] Stat Oth 02/15/21 16:03 Ordered Labs: Laboratory Tests 02/15/21 Range/Units 16:21 Influenza Type A RNA Negative (NEGATIVE) RSV RNA ([facility]) Negative (NEGATIVE) Influenza Type B RNA Negative (NEGATIVE) SARS-CoV-2 RNA ([facility]) Negative (NEGATIVE) Meds: Medications Discontinued Medications Generic Name Dose Route Start Last Admin Trade Name David PRN Reason Stop Dose Admin Acetaminophen 1,000 mg 02/15/21 17:03 02/15/21 17:10 Acetaminophen 500 Mg Tab PO 02/15/21 17:04 1,000 mg ONETIME ONE Administration Departure - Departure Time of Disposition: 17:20 Disposition: Home, Self-Care 01 Condition: Good Clinical Impression: Viral URI, Sinus pressure - Discharge Information *PRESCRIPTION DRUG MONITORING PROGRAM REVIEWED*: Not Applicable *COPY OF PRESCRIPTION DRUG MONITORING REPORT IN PATIENT HATTIE: Not Applicable Instructions: Upper Respiratory Infection, Adult, [id number] Referrals: Mane Javier MD [Primary Care Provider] - Additional Instructions: Switch from Lili to Lili D. Take acetaminophen up to 1000 mg every 6 hrs for pain relief. Use a humidifier. Drink ample fluids. Recheck as needed. Sepsis Event Note (ED) - Evaluation Sepsis Screening Result: No Definite Risk - Focused Exam Vital Signs: Vital Signs Temp Pulse Resp BP Pulse Ox 02/15/21 16:57 73 166/89 H 94 L 02/15/21 16:22 36.6 C 78 20 166/89 H 94 L - My Orders Last 24 Hours: My Active Orders 02/15/21 16:03 Isolation [COMM] Stat - Assessment/Plan Last 24 Hours: My Active Orders 02/15/21 16:03 Isolation [COMM] Stat
== END 2021-02-15 17:44 | disposition home or self-care (01) ==
LOC: JP.ED 16:00
DX: J06.9 Acute upper respiratory infection, unspecified (principal); J34.89 Other specified disorders of nose and nasal sinuses; I48.91 Unspecified atrial fibrillation; I10 Essential (primary) hypertension; E03.9 Hypothyroidism, unspecified; E66.9 Obesity, unspecified; Z68.35 Body mass index [BMI] 35.0-35.9, adult; Z88.5 Allergy status to narcotic agent; Z91.048 Other nonmedicinal substance allergy status; Z88.2 Allergy status to sulfonamides; Z91.041 Radiographic dye allergy status; Z88.8 Allergy status to other drugs, medicaments and biological substances; Z91.018 Allergy to other foods; Z79.01 Long term (current) use of anticoagulants; Z79.899 Other long term (current) drug therapy; Z87.891 Personal history of nicotine dependence; Z20.822 Contact with and (suspected) exposure to COVID-19
CPT/HCPCS: 0241U; 99283; A9270-GY

== ENCOUNTER 2022-07-11 20:25 | Emergency (ER) | payer MEDICARE, BC ==
[2022-07-11 20:55] VITALS: BP 159/61; PULSE 78
[2022-07-11] MEDS ORDERED: Lidocaine 4% 1 each Patch TOP SCH (21:30)
[2022-07-11] MEDS ORDERED: Lidocaine 5% 700 MG Patch ONE (22:10)
[2022-07-11] MEDS ORDERED: Lidocaine 5% 700 MG Patch TRDERM SCH (22:30)
== END 2022-07-11 23:00 | disposition home or self-care (01) ==
LOC: JP.ED 20:25
DX: M25.562 Pain in left knee (principal); M79.652 Pain in left thigh; M23.52 Chronic instability of knee, left knee; Z74.09 Other reduced mobility; I10 Essential (primary) hypertension; I48.91 Unspecified atrial fibrillation; J45.909 Unspecified asthma, uncomplicated; M10.9 Gout, unspecified; E05.90 Thyrotoxicosis, unspecified without thyrotoxic crisis or storm; E66.9 Obesity, unspecified; Z68.35 Body mass index [BMI] 35.0-35.9, adult; Z88.5 Allergy status to narcotic agent; Z91.048 Other nonmedicinal substance allergy status; Z88.8 Allergy status to other drugs, medicaments and biological substances; Z91.018 Allergy to other foods; Z88.2 Allergy status to sulfonamides; Z79.01 Long term (current) use of anticoagulants; Z79.899 Other long term (current) drug therapy
CPT/HCPCS: 73552; 73562; 99283; A9270

== ENCOUNTER 2022-12-26 15:20 | Emergency (ER) | payer MEDICARE, BC ==
[2022-12-26] MEDS ORDERED: methylPREDNISolone Sodium Succinate 40 MG/1 ML SDV IVPUSH ONE (16:13)
[2022-12-26] MEDS ORDERED: diphenhydrAMINE 50 MG/ML SDV IVPUSH ONE (16:13)
[2022-12-26] MEDS ORDERED: Sodium Chloride 0.9% 10 ML Syringe FLUSH PRN (16:29)
[2022-12-26] MEDS ORDERED: Iopamidol 612 MG/ML 100 ML Bottle IV SCH (16:30)
[2022-12-26] MEDS ORDERED: Sodium Chloride 0.9% 1,000 ML IV SCH (16:30)
[2022-12-26 16:32] LABS: BASOPHILS ABSOLUTE AUTO 0.03 K/uL (0.00-0.10); BASOPHILS PERCENT AUTO 0.5 % (0.1-1.3); EOSINOPHILS ABSOLUTE AUTO 0.17 K/uL (0.00-0.40); EOSINOPHILS PERCENT AUTO 2.8 % (0.0-5.4); HEMOGLOBIN 12.1 g/dL (11.2-15.5); IMMATURE GRAN ABSOLUTE AUTO 0.03 K/uL (0.00-0.23); IMMATURE GRAN PERCENT AUTO 0.5 % (0.0-0.7); LYMPHOCYTES ABSOLUTE AUTO 1.03 K/uL (0.8-3.3); LYMPHOCYTES PERCENT AUTO 16.7 % (11.4-47.7); MEAN CORPUSCULAR HEMOGLOBIN 28.4 pg (31.6-35.5); MEAN CORPUSCULAR HGB CONC 31.8 g/dL (31.6-35.5); MEAN CORPUSCULAR VOLUME 89.2 fL (81.4-99.0); MONOCYTES ABSOLUTE AUTO 0.44 K/uL (0.20-0.90); MONOCYTES PERCENT AUTO 7.2 % (3.3-12.6); NEUTROPHILS ABSOLUTE AUTO 4.45 K/uL (1.0-7.6); NEUTROPHILS PERCENT AUTO 72.3 % (40.0-78.1); PLATELET COUNT,PLT 102 K/uL (130-375); RED BLOOD CELL COUNT 4.26 M/uL (3.77-5.24); WHITE BLOOD CELL COUNT,WBC 6.2 K/uL (3.2-11.0)
[2022-12-26] MEDS ORDERED: Sodium Chloride 0.9% 100 ML IV SCH (16:45)
[2022-12-26 16:47] LABS: PROTHROMBIN TIME 37.6 sec (9.2-10.6)
[2022-12-26 16:51] LABS: A/G RATIO 0.9 (1.2-2.2); ALANINE AMINOTRANSFERASE,ALT 7 U/L (12-78); ALBUMIN 2.7 g/dL (3.4-5.0); ALKALINE PHOSPHATASE 149 U/L (46-116); ANION GAP 8.2 mmol/L (5.0-14.0); ASPARTATE AMNIOTRANSFERASE,AST 13 U/L (15-37); BILIRUBIN TOTAL 0.3 mg/dL (0.2-1.0); BLOOD UREA NITROGEN,BUN 12 mg/dL (7-18); CALCIUM 7.8 mg/dL (8.5-10.1); CARBON DIOXIDE,CO2 30 mmol/L (21-32); CHLORIDE,CL 106 mmol/L (100-108); CREATININE 1.1 mg/dL (0.6-1.0); ESTIMATED GFR 49 mL/min (>60); GLUCOSE RANDOM 109 mg/dL (74-106); POTASSIUM,K 3.6 mmol/L (3.6-5.2); PROTEIN TOTAL,TP 5.7 g/dL (6.4-8.2); SODIUM,NA 144 mmol/L (140-148)
[2022-12-26] MEDS ORDERED: Sodium Chloride 0.9% 50 ML IV SCH (17:00)
[2022-12-26] MEDS ORDERED: Acetaminophen 325 MG Tab PO ONE (19:09)
[2022-12-26 19:40] VITALS: BP 173/73; PULSE 81
== END 2022-12-26 19:57 | disposition home or self-care (01) ==
LOC: JP.ED 15:20
DX: T82.330A Leakage of aortic (bifurcation) graft (replacement), initial encounter (principal); R79.1 Abnormal coagulation profile; I10 Essential (primary) hypertension; I48.91 Unspecified atrial fibrillation; E66.9 Obesity, unspecified; E05.90 Thyrotoxicosis, unspecified without thyrotoxic crisis or storm; Z90.49 Acquired absence of other specified parts of digestive tract; Z90.710 Acquired absence of both cervix and uterus; Z79.01 Long term (current) use of anticoagulants; Z79.899 Other long term (current) drug therapy; Z88.5 Allergy status to narcotic agent; Z91.048 Other nonmedicinal substance allergy status; Z88.8 Allergy status to other drugs, medicaments and biological substances; Z88.2 Allergy status to sulfonamides; Z91.041 Radiographic dye allergy status; Z88.6 Allergy status to analgesic agent; Z68.34 Body mass index [BMI] 34.0-34.9, adult
CPT/HCPCS: 36415; 74177; 74177-26; 80053; 83605; 85025; 85610; 96374; 96375; 99284; 99284-25; A9270-GY; J1200; J2920; J3490; J7030; Q9967

== ENCOUNTER 2023-01-16 19:32 | Emergency (ER) | payer MEDICARE, BC ==
[2023-01-16] MEDS ORDERED: Tranexamic Acid 1,000 MG/10 ML Vial TOP ONE (20:00)
[2023-01-16] MEDS ORDERED: Ondansetron 4 MG/2 ML SDV IVPUSH ONE (20:11)
[2023-01-16] MEDS ORDERED: Sodium Chloride 0.9% 10 ML Syringe FLUSH PRN (20:12)
[2023-01-16 20:20] LABS: HEMATOCRIT 36.8 % (34.3-46.0); MEAN CORPUSCULAR HEMOGLOBIN 29.2 pg (31.6-35.5); MEAN CORPUSCULAR HGB CONC 32.6 g/dL (31.6-35.5); MEAN CORPUSCULAR VOLUME 89.5 fL (81.4-99.0); RED BLOOD CELL COUNT 4.11 M/uL (3.77-5.24); WHITE BLOOD CELL COUNT,WBC 9.1 K/uL (3.2-11.0)
[2023-01-16 20:35] LABS: INR 2.6; PROTHROMBIN TIME 24.9 sec (9.2-10.6)
[2023-01-16 21:08] VITALS: BP 139/61; PULSE 85
== END 2023-01-16 21:39 | disposition home or self-care (01) ==
LOC: JP.ED 19:32
DX: K91.840 Postprocedural hemorrhage of a digestive system organ or structure following a digestive system procedure (principal); I10 Essential (primary) hypertension; E66.9 Obesity, unspecified; Z79.899 Other long term (current) drug therapy; Z88.2 Allergy status to sulfonamides; Z88.5 Allergy status to narcotic agent; Z91.048 Other nonmedicinal substance allergy status; Z88.8 Allergy status to other drugs, medicaments and biological substances; Z91.018 Allergy to other foods; Z91.041 Radiographic dye allergy status; Z87.891 Personal history of nicotine dependence; Z68.27 Body mass index [BMI] 27.0-27.9, adult
CPT/HCPCS: 36415; 85027; 85610; 96374; 99283; J2405; J3490

== ENCOUNTER 2023-03-11 17:05 | Emergency (ER) | payer MEDICARE, BC ==
[2023-03-11] MEDS ORDERED: Sodium Chloride 0.9% 1,000 ML IV SCH (18:30)
[2023-03-11 18:47] LABS: BASOPHILS ABSOLUTE AUTO 0.03 K/uL (0.00-0.10); BASOPHILS PERCENT AUTO 0.5 % (0.1-1.3); EOSINOPHILS ABSOLUTE AUTO 0.31 K/uL (0.00-0.40); EOSINOPHILS PERCENT AUTO 5.4 % (0.0-5.4); HEMATOCRIT 38.4 % (34.3-46.0); HEMOGLOBIN 12.2 g/dL (11.2-15.5); IMMATURE GRAN ABSOLUTE AUTO 0.03 K/uL (0.00-0.23); IMMATURE GRAN PERCENT AUTO 0.5 % (0.0-0.7); LYMPHOCYTES ABSOLUTE AUTO 0.71 K/uL (0.8-3.3); LYMPHOCYTES PERCENT AUTO 12.5 % (11.4-47.7); MEAN CORPUSCULAR HEMOGLOBIN 28.9 pg (31.6-35.5); MEAN CORPUSCULAR HGB CONC 31.8 g/dL (31.6-35.5); MONOCYTES ABSOLUTE AUTO 0.48 K/uL (0.20-0.90); MONOCYTES PERCENT AUTO 8.4 % (3.3-12.6); NEUTROPHILS ABSOLUTE AUTO 4.13 K/uL (1.0-7.6); NEUTROPHILS PERCENT AUTO 72.7 % (40.0-78.1); PLATELET COUNT,PLT 87 K/uL (130-375); RED BLOOD CELL COUNT 4.22 M/uL (3.77-5.24); WHITE BLOOD CELL COUNT,WBC 5.7 K/uL (3.2-11.0)
[2023-03-11 18:59] LABS: APPEARANCE,URINE CLOUDY (CLEAR); BILIRUBIN,URINE NEGATIVE (NEGATIVE); COLOR,URINE YELLOW (YELLOW); GLUCOSE,URINE NEGATIVE (NEGATIVE); KETONES,URINE NEGATIVE (NEGATIVE); LEUKOCYTE ESTERASE,URINE NEGATIVE (NEGATIVE); NITRITE,URINE NEGATIVE (NEGATIVE); OCCULT BLOOD,URINE NEGATIVE (NEGATIVE); PROTEIN,URINE 100 mg/dL (NEGATIVE); UROBILINOGEN,URINE 0.2 EU/dL (0.2-1.0)
[2023-03-11] MEDS ORDERED: Potassium Chloride 20 MEQ in Premix Bag 1 BAG IV ONE (19:02)
[2023-03-11 19:05] LABS: AMORPHOUS SEDIMENT,URINE NOT SEEN; BACTERIA,URINE MANY; EPITHELIAL CELLS,URINE MODERATE; MUCUS,URINE NOT SEEN; RBC,URINE 0-5 (0-5)
[2023-03-11 19:06] LABS: ALANINE AMINOTRANSFERASE,ALT 16 U/L (12-78); ALBUMIN 2.7 g/dL (3.4-5.0); ALKALINE PHOSPHATASE 128 U/L (46-116); ASPARTATE AMNIOTRANSFERASE,AST 13 U/L (15-37); BILIRUBIN TOTAL 0.4 mg/dL (0.2-1.0); BLOOD UREA NITROGEN,BUN 15 mg/dL (7-18); CARBON DIOXIDE,CO2 30 mmol/L (21-32); CHLORIDE,CL 109 mmol/L (100-108); EST CRCL DRUG DOSING (CG) 29.54 mL/min; ESTIMATED GFR 55 mL/min (>60); GLUCOSE RANDOM 111 mg/dL (74-106); POTASSIUM,K 3.3 mmol/L (3.6-5.2); PROTEIN TOTAL,TP 5.5 g/dL (6.4-8.2); SODIUM,NA 146 mmol/L (140-148)
[2023-03-11 19:07] LABS: ANION GAP 10.3 mmol/L (5.0-14.0)
[2023-03-11] MEDS ORDERED: Potassium Chloride 10 MEQ in Premix Bag 1 BAG IV ONE (19:27)
[2023-03-11 21:29] VITALS: BP 189/72; PULSE 80
== END 2023-03-11 21:30 | disposition home or self-care (01) ==
LOC: JP.ED 17:05
DX: R53.1 Weakness (principal); R19.7 Diarrhea, unspecified; E87.6 Hypokalemia; I10 Essential (primary) hypertension; E66.9 Obesity, unspecified; E03.9 Hypothyroidism, unspecified; Z87.891 Personal history of nicotine dependence; Z88.5 Allergy status to narcotic agent; Z88.2 Allergy status to sulfonamides; Z91.041 Radiographic dye allergy status; Z91.018 Allergy to other foods; Z88.8 Allergy status to other drugs, medicaments and biological substances; Z91.048 Other nonmedicinal substance allergy status; Z79.899 Other long term (current) drug therapy; Z68.34 Body mass index [BMI] 34.0-34.9, adult
CPT/HCPCS: 36415; 80053; 81001; 82272; 83605; 85025; 87046; 87493; 87899; 89055; 96365; 99284; 99284-25; J3480; J7030

== ENCOUNTER 2023-03-30 20:08 | Emergency (ER) | payer MEDICARE, BC ==
[2023-03-30 21:14] LABS: BASOPHILS ABSOLUTE AUTO 0.04 K/uL (0.00-0.10); BASOPHILS PERCENT AUTO 0.6 % (0.1-1.3); EOSINOPHILS ABSOLUTE AUTO 0.21 K/uL (0.00-0.40); EOSINOPHILS PERCENT AUTO 3.3 % (0.0-5.4); HEMATOCRIT 39.7 % (34.3-46.0); HEMOGLOBIN 12.7 g/dL (11.2-15.5); IMMATURE GRAN PERCENT AUTO 0.3 % (0.0-0.7); LYMPHOCYTES ABSOLUTE AUTO 1.16 K/uL (0.8-3.3); LYMPHOCYTES PERCENT AUTO 18.1 % (11.4-47.7); MEAN CORPUSCULAR HEMOGLOBIN 28.4 pg (31.6-35.5); MEAN CORPUSCULAR VOLUME 88.8 fL (81.4-99.0); MONOCYTES ABSOLUTE AUTO 0.49 K/uL (0.20-0.90); MONOCYTES PERCENT AUTO 7.6 % (3.3-12.6); NEUTROPHILS PERCENT AUTO 70.1 % (40.0-78.1); PLATELET COUNT,PLT 93 K/uL (130-375); RED BLOOD CELL COUNT 4.47 M/uL (3.77-5.24); WHITE BLOOD CELL COUNT,WBC 6.4 K/uL (3.2-11.0)
[2023-03-30 21:15] LABS: IMMATURE GRAN ABSOLUTE AUTO 0.02 K/uL (0.00-0.23)
[2023-03-30 21:31] LABS: ANION GAP 6.2 mmol/L (5.0-14.0); CALCIUM 7.7 mg/dL (8.5-10.1); CREATININE 0.9 mg/dL (0.6-1.0); EST CRCL DRUG DOSING (CG) 32.83 mL/min; POTASSIUM,K 4.6 mmol/L (3.6-5.2)
[2023-03-30 21:44] LABS: PROTHROMBIN TIME 37.6 sec (9.2-10.6)
[2023-03-30 21:57] LABS: APPEARANCE,URINE SLIGHTLY CLOUDY (CLEAR); BILIRUBIN,URINE NEGATIVE (NEGATIVE); COLOR,URINE YELLOW (YELLOW); GLUCOSE,URINE NEGATIVE (NEGATIVE); KETONES,URINE NEGATIVE (NEGATIVE); LEUKOCYTE ESTERASE,URINE TRACE (NEGATIVE); NITRITE,URINE NEGATIVE (NEGATIVE); OCCULT BLOOD,URINE NEGATIVE (NEGATIVE); PH,URINE 5.5 (5.0-8.0); PROTEIN,URINE NEGATIVE (NEGATIVE); UROBILINOGEN,URINE 0.2 EU/dL (0.2-1.0)
[2023-03-30 22:02] LABS: AMORPHOUS SEDIMENT,URINE NOT SEEN; BACTERIA,URINE MANY; EPITHELIAL CELLS,URINE MANY; MUCUS,URINE MODERATE; WBC,URINE 20-30 (0-5)
[2023-03-30 22:19] VITALS: PULSE 75
[2023-03-30 22:47] VITALS: BP 173/89
[2023-03-30] MEDS: Lisinopril 10 MG Tab PO ONE (22:47)
== END 2023-03-30 23:05 | disposition home or self-care (01) ==
LOC: JP.ED 20:08
DX: I16.0 Hypertensive urgency (principal); I10 Essential (primary) hypertension; E66.9 Obesity, unspecified; E03.9 Hypothyroidism, unspecified; Z88.2 Allergy status to sulfonamides; Z88.5 Allergy status to narcotic agent; Z91.041 Radiographic dye allergy status; Z91.048 Other nonmedicinal substance allergy status; Z88.8 Allergy status to other drugs, medicaments and biological substances; Z91.018 Allergy to other foods; Z79.01 Long term (current) use of anticoagulants; Z79.899 Other long term (current) drug therapy; Z90.49 Acquired absence of other specified parts of digestive tract; Z90.710 Acquired absence of both cervix and uterus; Z68.32 Body mass index [BMI] 32.0-32.9, adult
CPT/HCPCS: 36415; 80048; 81001; 85025; 85610; 87086; 99284; A9270

== ENCOUNTER → 2024-11-24 | Day surgery (SDC) | payer MEDICARE, BC ==
[~2024-11-24] MED LIST changes: +Midazolam 1 MG/ML 2 ML SDV ONE; +Propofol 200 MG/20 ML SDV ONE; -Sodium Chloride 0.9% 10 ML Syringe FLUSH PRN; +fentaNYL 100 MCG/2 ML SDV ONE
[2024-11-24] MEDS: Lactated Ringers 1,000 ML IV SCH (09:26)
[2024-11-24] MEDS: Lidocaine 1% with EPINEPHrine 1:100,000 50 ML MDV ONE (11:30)
[2024-11-24 13:12] VITALS: BP 158/68; PULSE 87
== END ==
LOC: JP.SDS 08:19
PROVIDERS: ATTEND Surgery
DX: Z45.2 Encounter for adjustment and management of vascular access device (principal); Z88.5 Allergy status to narcotic agent; Z91.09 Other allergy status, other than to drugs and biological substances; I48.91 Unspecified atrial fibrillation; I10 Essential (primary) hypertension; E05.90 Thyrotoxicosis, unspecified without thyrotoxic crisis or storm; Z79.01 Long term (current) use of anticoagulants; Z79.899 Other long term (current) drug therapy
CPT/HCPCS: 00532-QZ; 71045; 71045-26; 77001; C1788; C1894; J0665; J0690; J1642; J2250; J2704; J3010; J7120